=== PATIENT | male | born 1995 | race Two or more races ===

== ENCOUNTER 2024-06-24 00:37 | Emergency (ER) | payer MEDICAID, OTHER ==
[~2024-06-24] VITALS: Ht 167.6 cm; Wt 84.1 kg
[2024-06-24] MEDS ORDERED: BACIOIN15 OP (01:19)
[2024-06-24] MEDS ORDERED: IBUP-1455 PO (01:19)
[2024-06-24 01:20] VITALS: BP 116/72; PULSE 75; RESP 16; TEMP 97.7; O2SAT 96
[2024-06-24] MEDS: TETANUS-DIPTH-ACEL PERTUSSIS 0.5ML SYR Tdap IM ONE (01:35)
== END 2024-06-24 01:43 | disposition home or self-care (01) ==
LOC: ER 00:37
DX: S01.511A Laceration without foreign body of lip, initial encounter (principal); V00.131A Fall from skateboard, initial encounter; Y93.51 Activity, roller skating (inline) and skateboarding; Y92.89 Other specified places as the place of occurrence of the external cause; Y99.8 Other external cause status
CPT/HCPCS: 12011; 90471; 90715

== ENCOUNTER 2024-07-02 08:49 | Emergency (ER) | payer OTHER ==
[~2024-07-02] VITALS: Ht 167.6 cm; Wt 84.4 kg
[~2024-07-02 08:49] MED LIST: BACIOIN15 OP; IBUP-1455 PO
[2024-07-02 09:06] VITALS: BP 128/77; PULSE 76; RESP 17; TEMP 97.6; O2SAT 98
== END 2024-07-02 09:09 | disposition home or self-care (01) ==
LOC: ER 08:49
DX: S01.511D Laceration without foreign body of lip, subsequent encounter (principal); Z79.899 Other long term (current) drug therapy; Z48.02 Encounter for removal of sutures; V00.131D Fall from skateboard, subsequent encounter

== ENCOUNTER 2025-07-09 08:52 | Emergency (ER) | payer OTHER ==
[~2025-07-09] VITALS: Ht 167.6 cm; Wt 82.1 kg
--- NOTE | 2025-07-09 09:58 | ED.PDOC ---
Musculoskeletal HPI Comments 30-year-old male who presents to the ED for chief complaint of extremity pain. Patient states he has been having right ankle pain and swelling since yesterday. Patient states he twisted his ankle while tending to his dogs. Patient denies any associated fall or trauma. Patient rates his pain 8.5/10 and denies having taken any medications for it at home. Patient in the ED otherwise denies any other symptoms. Patient has stable vitals in the ED. Chief Complaint: Lower Extremity Time Seen by MD: 09:55 Reviewed Notes: Medications, Allergies Allergies: Coded Allergies: NO KNOWN ALLERGIES (Unverified , 06/24/24) Home Meds Active Scripts Naproxen (Naproxen) 500 Mg Tab, 500 MG PO BIDPC for 10 Days, #20 TAB 0 Refills Prov:SHIRA EVANGELISTA ROUTE [employer]IVER 07/09/25 Ibuprofen Micronized (Ibuprofen) 800 Mg Tab, 800 MG PO Q8HP PRN, #20 TAB Prov:ALIN PEREZ PAC 06/24/24 Bacitracin Base (Bacitracin) 500 Unit/Gm Oin, 500 UNIT OP BID, #30 GM Prov:ALIN PEREZ PAC 06/24/24 Information Source: Patient Mode of Arrival: Ambulatory Brought in by: Self Location: Right Extremity Location: Ankle Past Medical History PAST MEDICAL HISTORY: Denies Surgical History: Denies all surgeries Family History Family History: Reviewed,noncontributory to illness, No family hx of Cancer, No family hx of DM, No family hx of Heart clyde, No family hx of HTN, No family hx of Kidney clyde, No family hx of Liver clyde, No family hx of Lung clyde, No family hx of Stroke Social History Smoker: Non-Smoker Alcohol: Denies ETOH Use Drugs: Denies Drug Use Constitutional: denies: chills, diaphoresis, fatigue, fever, malaise, sweats, weakness, others EENTM: denies: blurred vision, double vision, ear bleeding, ear discharge, ear drainage, ear pain, ear ringing, eye pain, eye redness, hearing loss, mouth pain, mouth swelling, nasal discharge, nose bleeding, nose congestion, nose pain, photophobia, tearing, throat pain, throat swelling, voice changes, others Respiratory: denies: cough, hemoptysis, orthopnea, SOB at rest, shortness of breath, SOB with excertion, stridor, wheezing, others Cardiovascular: denies: chest pain, dizzy spells, diaphoresis, Dyspnea on exertion, edema, irregular heart beat, left arm pain, lightheadedness, palpi tations, PND, syncope, others Gastrointestinal: denies: abdomen distended, abdominal pain, blood streaked bowels, constipated, diarrhea, dysphagia, difficulty swallowing, hematemesis, melena, nausea, poor appetite, poor fluid intake, rectal bleeding, rectal pain, vomiting, others Genitourinary: denies: burning, dysuria, flank pain, frequency, hematuria, incontinence, penile discharge, penile sore, pain, testicle pain, testicle swelling, urgency, others Neurological: denies: dizziness, fainting, headache, left sided numbness, left sided weakness, numbness, paresthesia, pre-existing deficit, right sided numbness, right sided weakness, seizure, speech problems, tingling, tremors, weakness, others Musculoskeletal: reports: joint pain (Right ankle), joint swelling (Right ankle); denies: back pain, gout, muscle pain, muscle stiffness, neck pain, others Integumetry: denies: bruises, change in color, change in hair/nails, dryness, laceration, lesions, lumps, rash, wounds, others Allergic/Immunocompromised: denies: Difficulty Healing, Frequent Infections, Hives, Itching, others Hematologic/Lymphatic: denies: anemia, blood clots, easy bleeding, easy bruising, swollen glands, others Endocrine: denies: excessive hunger, excessive sweating, excessive thirst, excessive urination, flushing, intolerance to cold, intolerance to heat, unexplained weight gain, unexplained weight loss, others Psychiatric: denies: anxiety, bipolar disorder, depression, hopeless, panic disorder, schizophrenia, sleepless, suicidal, others All Other Systems: Reviewed and Negative Physical Exam General Appearance: No Apparent Distress, Normal HEENT: Normal ENT Inspection, Pharynx Normal, TMs Normal Neck: Full Range of Motion, Non-Tender, Normal, Normal Inspection Respiratory: Chest Non-Tender, Lungs Clear, No Accessory Muscle Use, No Respiratory Distress, Normal Breath Sounds Cardiovascular: No Edema, No JVD, No Murmur, No Gallop, Normal Peripheral Pulses, Regular Rate/Rhythm Breast Exam: Deferred Gastrointestinal: No Organomegaly, Non Tender, No Pulsatile Mass, Normal Bowel Sounds, Soft Genitalia: Deferred Pelvic: Deferred Rectal: Deferred Extremities: Swelling (Mild swelling noted to the right lateral malleolus, ), Tender (Mild tenderness noted with flexion and extension) Musculoskeletal : Apperance: Normal Neurologic: Alert, code enforcement supervisor II-XII nml as Tested, No Motor Deficits, Normal Affect, Normal Mood, No Sensory Deficits Cerebellar Function: Normal Reflexes: Normal Skin: Dry, Normal Color, Warm Lymphatic: No Adenopathy Was a procedure done? Was a procedure done?: No Differential Diagnosis EXT Differential Diagnosis: Fracture, Sprain, Contusion, Strain X-Ray, Labs, Meds, VS Vital Signs Date Time Temp Pulse Resp B/P (MAP) Pulse Ox O2 Delivery O2 Flow Rate FiO2 07/09/25 10:42 68 18 98 Room Air 07/09/25 10:42 98.1 68 18 127/84 (98) 68 98.1 07/09/25 10:06 63 16 96 Room Air 07/09/25 09:58 97.9 63 16 145/89 (107) 96 97.9 07/09/25 08:53 97.9 63 16 145/89 96 97.9 Current Medications Medications (Trade) Dose Ordered Sig/Jonny Route Start Time Stop Time Status Last Admin Ketorolac Tromethamine (Toradol Injection) 30 mg ONCE ONCE IM 07/09/25 10:00 07/09/25 10:01 DC 07/09/25 10:05 X-Ray, Labs, Meds, VS Comment Patient arrives alert and oriented, ABC's intact, afebrile, vital signs stable, saturating well in room air Diagnostic imaging ordered by me and results interpreted by radiology : Right ankle x-ray Patient was given: Toradol 30 mg Tolerated medications with no adverse reaction. Findings: No fracture or dislocation My wet read reveals no apparent acute bony abnormality, no FB, minimal to no soft tissue swelling and appropriate alignment. Presentation most consistent with Ankle Sprain. Patient does not currently demonstrate complications of sprain such as compartment syndrome, arterial or nerve injury. Differentials considered but not limited to: sprain, fracture, achilles tendon rupture, Maisonneuve fracture, distal fibula avulsion fracture, bi/tri-malleolar fracture, neurovascular compromise. The joint itself is non-irritable with ROM and there is no overlying redness and warmth to suggest injection. The Achilles and dorsiflexion tendon are non-tender and extension is intact. Disposition: Discharge. Supportive bracing provided. WBAT. RICE. Strict return precautions and instructions to follow up with primary MD within 24-48 hours for further evaluation. May benefit from additional imaging such as stress views or MRI. Additional MDM Review of External, Non-ED records: External records reviewed. Discussion with independent historian (EMS, family) history obtained from the patient/parents (if applicable) at bedside Chronic conditions affecting care: None Social determinants of health affecting care: None Consideration of admission (observation or admission): I considered escalation of care to admission for this patient, however given the reassuring workup, the patient is safe for outpatient management. Discussion with the Radiology: No Tests considered but not performed: Prescription medication considered but not given: 12 lead EKG interpretation: Time of 1ST Reevaluation: 10:25 Reevaluation 1ST: Unchanged Patient Education/Counseling: Diagnosis, Treatment Family Education/Counseling: No Family Present Departure 1 Departure Time of Disposition: 10:32 Impression: Primary Impression: Ankle sprain Qualified Codes: S93.401A - Sprain of unspecified ligament of right ankle, initial encounter Disposition: HOME / SELF CARE / HOMELESS Condition: Stable e-Prescriptions Naproxen (Naproxen) 500 Mg Tab 500 MG PO BIDPC for 10 Days, #20 TAB 0 Refills Prov: SHIRA EVANGELISTA NP 07/09/25 Discharged With: Self Critical Care Note Critical Care Time?: No Stability Stability form required: No Heart Score Heart Score: Heart Score Response (Comments) Value History N/A 0 EKG N/A 0 Age N/A 0 Risk Factors N/A 0 Troponin N/A 0 Total 0 I personally scribed for SHIRA EVANGELISTA NP (LEATHA) on 07/09/25 at 09:57. El ectronically submitted by Enio Flores (MYRNA). I personally scribed for SHIRA EVANGELISTA NP (LEATHA) on 07/09/25 at 10:15. Electronically submitted by Enio Flores (MYRNA). I personally scribed for SHIRA EVANGELISTA NP (LEATHA) on 07/09/25 at 10:54. Electronically submitted by Enio Flores (MYRNA). SHIRA EVANGELISTA NP Jul 09, 2025 09:57
[2025-07-09] MEDS: KETOROLAC TROMETH 30 MG/ML 1ML VIAL IM ONE (10:05)
--- NOTE | 2025-07-09 10:28 | DVH ---
EXAM: XY R ANKLE 3 VIEW CLINICAL INDICATION: twisted ankle. r/o fracture TECHNIQUE: XY R ANKLE 3 VIEW Comparison: None FINDINGS/IMPRESSION: There is no evidence of acute fracture or dislocation. The visualized joint space is well maintained. The alignment is anatomical. There is no radiopaque foreign body.
[2025-07-09] MEDS ORDERED: NAPR-746 PO (10:32)
[2025-07-09 10:42] VITALS: BP 127/84; PULSE 68; RESP 18; TEMP 98.1; O2SAT 98
== END 2025-07-09 10:46 | disposition home or self-care (01) ==
LOC: ER 08:52
DX: S93.401A Sprain of unspecified ligament of right ankle, initial encounter (principal); X50.1XXA Overexertion from prolonged static or awkward postures, initial encounter; Y93.89 Activity, other specified; Y92.89 Other specified places as the place of occurrence of the external cause; Y99.8 Other external cause status
CPT/HCPCS: 73610; 96372; 99283; J1885